=== PATIENT | male | born 1935 | race Caucasian/White ===

== ENCOUNTER → 2017-10-28 | Outpatient (CLI) | payer MEDICARE, OTHER ==
[~2017-10-28] MED LIST: AMLO2.5T PO; DABI150C PO; DONE10TA7 PO; ESCI10TA PO; MEMA10TA PO; METO25TA2 PO; MIRT15TA4 PO; PRAV10TA2 PO; VALS1TAB24 PO
[2017-10-28 11:21] LABS: MD NO; RED CELL DISTRIBUTION WIDTH 13.9 % (9.4-14.8)
[2017-10-28 11:28] LABS: MICROSCOPIC NOT IND
[2017-10-28 11:32] LABS: PROTHROMBIN TIME 10.3 Seconds (9.6-11.5)
[2017-10-28 11:47] LABS: BASOPHILS # (AUTO) 0.04 x10^3/uL (0-0.1); BASOPHILS % (AUTO) 1 % (0-1); EOSINOPHILS # (AUTO) 0.25 x10^3/uL (0-0.4); EOSINOPHILS % (AUTO) 3 % (1-7); LYMPHOCYTES # (AUTO) 1.16 x10^3/uL (1-3.4); LYMPHOCYTES % (AUTO) 15 % (22-44); MEAN CORPUSCULAR HEMOGLOBIN 32.5 pg (27.5-34.5); MEAN CORPUSCULAR HGB CONC 34.3 g/dL (33.2-36.2); MEAN CORPUSCULAR VOLUME 94.6 fL (81-97); MEAN PLATELET VOLUME 8.3 fL (7.4-10.4); MONOCYTES # (AUTO) 0.86 x10^3/uL (0.2-0.8); MONOCYTES % (AUTO) 11 % (2-9); NEUTROPHILS # (AUTO) 5.26 x10^3/uL (1.8-6.8); NEUTROPHILS % (AUTO) 70 % (42-75); PLATELET COUNT 206 x10^3/uL (130-400); RED BLOOD COUNT 5.03 x10^6/uL (4.38-5.82)
[2017-10-28 11:50] LABS: ALBUMIN 3.9 g/dL (3.4-5.0); ANION GAP 5 mmol/L (5-15); CALCIUM 9.4 mg/dL (8.5-10.1); CHLORIDE 107 mmol/L (98-107)
[2017-10-28 11:54] LABS: ALANINE AMINOTRANSFERASE 22 U/L (12-78); ALKALINE PHOSPHATASE 84 U/L (45-117); BILIRUBIN,TOTAL 0.4 mg/dL (0.2-1.0); CREATININE 1.07 mg/dL (0.7-1.3); TOTAL PROTEIN 7.3 g/dL (6.4-8.2)
== END | disposition home or self-care (01) ==
LOC: STAR 10:14
PROVIDERS: ATTEND Student in an Organized Health Care Education/Training Program
DX: Z01.818 Encounter for other preprocedural examination (principal); R31.0 Gross hematuria; D41.4 Neoplasm of uncertain behavior of bladder; I44.4 Left anterior fascicular block; I48.91 Unspecified atrial fibrillation; S22.41XA Multiple fractures of ribs, right side, initial encounter for closed fracture; X58.XXXA Exposure to other specified factors, initial encounter; Y93.89 Activity, other specified; Y92.89 Other specified places as the place of occurrence of the external cause; Y99.8 Other external cause status
CPT/HCPCS: 36415; 71046; 80053; 81003; 85025; 85610; 85730; 87086; 93005

== ENCOUNTER 2017-11-06 08:49 | Observation (INO) | payer MEDICARE, OTHER ==
[~2017-11-06] VITALS: Ht 182.9 cm; Wt 84.9 kg
[2017-11-06] MEDS ORDERED: LACTATED RINGERS 1,000 ML IV SCH (09:22)
[2017-11-06] MEDS ORDERED: LIDOCAINE-MPF 1%, 2ML INFIL ONE (09:30)
[2017-11-06] MEDS ORDERED: FENTANYL PF 250 MCG/5ML ONE (09:47)
[2017-11-06] MEDS ORDERED: MIDAZOLAM 1 MG/ML, 2ML ONE (09:47)
[2017-11-06] MEDS ORDERED: MITOMYCIN 40 MG in STERILE WATER 40 ML INTVESIC ONE (10:00)
[2017-11-06] MEDS ORDERED: PROPOFOL 50 ML ONE (10:10)
[2017-11-06] MEDS ORDERED: PHENYLEPHRINE 10 MG/ML ONE (10:14)
[2017-11-06] MEDS ORDERED: ROCURONIUM 10 MG/ML,10ML ONE (10:14)
[2017-11-06] MEDS ORDERED: GLYCOPYRROLATE 0.2MG/1ML, 5ML ONE (10:14)
[2017-11-06] MEDS ORDERED: NEOSTIGMINE 1 MG/ML, 10ML ONE (10:14)
[2017-11-06] MEDS ORDERED: CEFAZOLIN 1,000 MG ONE (10:14)
[2017-11-06] MEDS ORDERED: OXYcodone 5 MG/5 ML ORAL.SOL UDC PO PRN (11:00)
[2017-11-06] MEDS ORDERED: MEPERIDINE/PF 25MG/0.5ML IVPush PRN (11:00)
[2017-11-06] MEDS ORDERED: ACETAMINOPHEN 325 MG TABLET PO PRN ×2 (11:00→16:00)
[2017-11-06] MEDS ORDERED: HALOPERIDOL 5 MG/ML IV PRN (11:00)
[2017-11-06] MEDS ORDERED: hydrALAzine 20 MG/ML, 1ML IV PRN (11:00)
[2017-11-06] MEDS ORDERED: LABETALOL 5MG/ML, 20ML IV PRN (11:00)
[2017-11-06] MEDS ORDERED: HYDROmorphone 1 MG/ML, 1ML IV PRN (11:00)
[2017-11-06] MEDS ORDERED: FENTANYL PF 100 MCG/2ML ONE ×2 (11:15→11:37)
[2017-11-06] MEDS ORDERED: OPIUM/BELLADONNA SUPP.RECT 16.2-30 MG ONE (11:17)
[2017-11-06] MEDS: FENTANYL PF 100 MCG/2ML IV PRN ×4 (11:20→11:39)
[2017-11-06] MEDS: OPIUM/BELLADONNA SUPP.RECT 16.2-30 MG PR PRN ×2 (11:28→20:22)
[2017-11-06] MEDS: PHENAZOPYRIDINE 100 MG TABLET PO PRN (13:22)
[2017-11-06] MEDS ORDERED: KETOROLAC 30 MG/1 ML IVPush PRN (15:30)
[2017-11-06] MEDS ORDERED: ONDANSETRON ODT 4 MG PO PRN (16:00)
[2017-11-06] MEDS ORDERED: ONDANSETRON 2MG/ML, 2ML IVPush PRN (16:00)
[2017-11-06] MEDS: SODIUM CHLORIDE 0.9% 1,000 ML IV SCH ×2 (16:46)
[2017-11-06] MEDS: ACETAMINOPHEN 325 MG TABLET PO SCH ×2 (16:47→21:32)
[2017-11-06] MEDS: PRAVASTATIN 20 MG TABLET PO SCH (20:29)
[2017-11-06] MEDS: MEMANTINE 10MG TABLET PO SCH (20:29)
[2017-11-06 20:43] VITALS: BP 160/77
[2017-11-06 23:32] VITALS: BP 147/90
[2017-11-07] MEDS: SODIUM CHLORIDE 0.9% 1,000 ML IV SCH ×3 (01:27→16:59)
[2017-11-07 03:15] VITALS: BP 132/84
[2017-11-07] MEDS: PHENAZOPYRIDINE 100 MG TABLET PO PRN ×2 (04:00→19:35)
[2017-11-07] MEDS: ACETAMINOPHEN 325 MG TABLET PO SCH ×4 (04:00→21:07)
[2017-11-07 05:59] LABS: BASOPHILS # (AUTO) 0.04 x10^3/uL (0-0.1); BASOPHILS % (AUTO) 1 % (0-1); EOSINOPHILS % (AUTO) 5 % (1-7); LYMPHOCYTES # (AUTO) 1.31 x10^3/uL (1-3.4); LYMPHOCYTES % (AUTO) 20 % (22-44); MD NO; MEAN CORPUSCULAR HEMOGLOBIN 32.3 pg (27.5-34.5); MEAN CORPUSCULAR HGB CONC 33.9 g/dL (33.2-36.2); MEAN CORPUSCULAR VOLUME 95.3 fL (81-97); MEAN PLATELET VOLUME 8.5 fL (7.4-10.4); MONOCYTES # (AUTO) 0.71 x10^3/uL (0.2-0.8); MONOCYTES % (AUTO) 11 % (2-9); NEUTROPHILS # (AUTO) 4.29 x10^3/uL (1.8-6.8); NEUTROPHILS % (AUTO) 64 % (42-75); PLATELET COUNT 192 x10^3/uL (130-400); RED BLOOD COUNT 4.69 x10^6/uL (4.38-5.82); RED CELL DISTRIBUTION WIDTH 13.6 % (9.4-14.8)
[2017-11-07 06:05] LABS: ANION GAP 4 mmol/L (5-15); CALCIUM 8.8 mg/dL (8.5-10.1); CHLORIDE 103 mmol/L (98-107); CREATININE 1.04 mg/dL (0.7-1.3)
[2017-11-07 08:11] VITALS: BP 103/56
[2017-11-07] MEDS: CITALOPRAM 20 MG TABLET PO SCH (09:06)
[2017-11-07] MEDS: AMLODIPINE 2.5 MG TABLET PO SCH (09:06)
[2017-11-07] MEDS: MIRTAZAPINE 15 MG TABLET PO SCH (09:07)
[2017-11-07] MEDS: DONEPEZIL 10 MG TABLET PO SCH (09:07)
[2017-11-07] MEDS: METOPROLOL SUCCINATE 25 MG TAB.ER.24H PO SCH (09:07)
[2017-11-07] MEDS: MEMANTINE 10MG TABLET PO SCH ×2 (09:07→19:34)
[2017-11-07 13:37] VITALS: BP_SYST 131; BP_SYST 133; BP_DIAS 72; BP_DIAS 84
[2017-11-07] MEDS: PRAVASTATIN 20 MG TABLET PO SCH (19:34)
[2017-11-07 19:51] VITALS: BP 167/96
[2017-11-07 20:00] VITALS: BP 155/71
[2017-11-08 02:58] VITALS: BP 148/73
[2017-11-08] MEDS: ACETAMINOPHEN 325 MG TABLET PO SCH ×2 (03:30→09:55)
[2017-11-08] MEDS: SODIUM CHLORIDE 0.9% 1,000 ML IV SCH ×2 (07:30→08:23)
[2017-11-08 08:01] VITALS: BP 142/68
[2017-11-08] MEDS: MEMANTINE 10MG TABLET PO SCH (09:55)
[2017-11-08] MEDS: AMLODIPINE 2.5 MG TABLET PO SCH (09:55)
[2017-11-08] MEDS: MIRTAZAPINE 15 MG TABLET PO SCH (09:55)
[2017-11-08] MEDS: CITALOPRAM 20 MG TABLET PO SCH (09:55)
[2017-11-08] MEDS: METOPROLOL SUCCINATE 25 MG TAB.ER.24H PO SCH (09:55)
[2017-11-08] MEDS: DONEPEZIL 10 MG TABLET PO SCH (09:59)
[2017-11-08 10:12] VITALS: BP_SYST 153
[2017-11-08] MEDS ORDERED: PHEN100T90 PO (10:41)
[2017-11-08] MEDS ORDERED: POLY17PO5 PO (10:41)
[2017-11-08] MEDS ORDERED: DOCU-131 PO (10:42)
== END 2017-11-08 10:32 | disposition home or self-care (01) ==
LOC: OUT 08:49 → 4NOR 15:21 → UNDOADMOB 15:34 → INTOOBSV 15:34 → OUT 15:34 → 4NOR 15:53 → DCLOUNGE 11-08 10:26
PROVIDERS: ADMIT Student in an Organized Health Care Education/Training Program; ATTEND Student in an Organized Health Care Education/Training Program
DX: D49.4 Neoplasm of unspecified behavior of bladder (principal); R31.0 Gross hematuria; F03.90 Unspecified dementia, unspecified severity, without behavioral disturbance, psychotic disturbance, mood disturbance, and anxiety; I48.91 Unspecified atrial fibrillation; I11.9 Hypertensive heart disease without heart failure; E78.5 Hyperlipidemia, unspecified; D68.69 Other thrombophilia; G93.41 Metabolic encephalopathy; H91.90 Unspecified hearing loss, unspecified ear; Z79.01 Long term (current) use of anticoagulants; Z80.51 Family history of malignant neoplasm of kidney
CPT/HCPCS: 36415; 52234; 80048; 85025; 88307; 97161; 97166; G0378; G8978; G8979; G8980; J0690; J2250; J2370; J2704; J2710; J3010; J3490; J7030; J7120; J9280